=== PATIENT | female | born 1930 | race African-American/Black ===

== ENCOUNTER 2017-02-13 14:10 | Emergency (ER) | payer MEDICARE, OTHER ==
[2017-02-13] MEDS ORDERED: cefTRIAXone\\ROCEPHIN 1 GM VIAL ONE (14:27)
[2017-02-13] MEDS ORDERED: Albuterol Sulfate 2.5 mg/0.5 ml Neb ONE (14:57)
[2017-02-13] MEDS ORDERED: Sodium Chloride For Inhalation 0.9% 3 ML NEB ONE (14:57)
--- NOTE | 2017-02-13 17:18 | RAD ---
PORTABLE CHEST: History: Cough. FINDINGS: Heart size is enlarged. Aorta is tortuous. The lungs are clear of infiltrate. IMPRESSION: Cardiomegaly. POS: [facility]
== END 2017-02-13 15:20 | disposition home or self-care (01) ==
LOC: NAV ERS 14:10
DX: J10.1 Influenza due to other identified influenza virus with other respiratory manifestations (principal); J44.9 Chronic obstructive pulmonary disease, unspecified; I11.0 Hypertensive heart disease with heart failure; I50.9 Heart failure, unspecified; K21.9 Gastro-esophageal reflux disease without esophagitis; F17.210 Nicotine dependence, cigarettes, uncomplicated; Z79.899 Other long term (current) drug therapy
CPT/HCPCS: 71010; 94640; 96372; J0696; J7611

== ENCOUNTER 2017-04-16 17:23 | Emergency (ER) | payer MEDICARE, OTHER | END 2017-04-16 19:22 | disposition home or self-care (01) | LOC: NAV ERS 17:23 | DX: H61.22 Impacted cerumen, left ear (principal); I10 Essential (primary) hypertension; I50.9 Heart failure, unspecified; K21.9 Gastro-esophageal reflux disease without esophagitis; F32.9 Major depressive disorder, single episode, unspecified; Z87.891 Personal history of nicotine dependence; Z79.899 Other long term (current) drug therapy | CPT/HCPCS: 69210 ==

== ENCOUNTER 2018-02-17 14:35 | Emergency (ER) | payer MEDICARE, OTHER ==
[2018-02-17] MEDS ORDERED: Pantoprazole 40 MG VIAL ONE (15:27)
[2018-02-17 15:31] LABS: #Eosinphils 0.1 thou/uL (0.0-0.7); #Lymphocytes 1.5 thou/uL (1.20-3.40); #Monocytes 0.3 thou/uL (0.11-0.59); %Basophils 0.8 % (0.0-1.0); %Lymphocytes 24.9 % (21.0-51.0); %Monocytes 5.3 % (0.0-10.0); %Neutrophils 67.1 % (42.0-75.0); Hemoglobin 11.5 g/dL (12.0-16.0); Mean Corpuscular HGB CONC 33.2 g/dL (32.0-36.0); Mean Corpuscular Hemoglobin 33.9 pg (27.0-31.0); Mean Platelet Volume 6.2 fL (7.4-10.4); Platelet Count 303 thou/uL (130-400); RBC Distribution Width 14.8 % (11.5-14.5); White Blood Cell (WBC) Count 5.9 thou/uL (4.8-10.8)
[2018-02-17 15:49] LABS: ALT (SGPT) 13 U/L (8-55); AST (SGOT) 18 U/L (5-34); Albumin 4.3 g/dL (3.4-4.8); Alkaline Phosphatase 80 U/L (40-150); Anion Gap 17 mmol/L (10-20); BUN (Urea Nitrogen) 27 mg/dL (9.8-20.1); Bilirubin, Total 0.8 mg/dL (0.2-1.2); Calc. Creatinine Clearance 0 mL/min (70-130); Calcium 10.5 mg/dL (7.8-10.44); Carbon Dioxide 25 mmol/L (23-31); Chloride 101 mmol/L (98-107); Estimated GFR-MDRD 32; Globulin 3.2 g/dL (2.4-3.5); Glucose 105 mg/dL (83-110); Lipase 16 U/L (8-78); Protein, Total 7.5 g/dL (6.0-8.3); Sodium 139 mmol/L (136-145)
[2018-02-17 15:55] LABS: CKMB 1.4 ng/mL (0-6.6); Troponin I Less than 0.010 ng/mL (< 0.028)
--- NOTE | 2018-02-17 16:00 | RAD ---
SEMIUPRIGHT PORTABLE CHEST ONE VIEW: 02/17/18 HISTORY: 87-year-old female with history of chest pain. COMPARISON: 02/25/17. FINDINGS: Large body habitus lowers the sensitivity of this study. Poor inspiration is noted. Mild cardiomegaly with atherosclerosis of the aorta. Indistinction of the costophrenic angles raising concerning for s mall pleural effusions. No evidence for a confluent pneumonia. IMPRESSION: Poor inspiratory effort with minimal cardiomegaly and atherosclerotic ectatic changes of the aorta. I ndistinction of the costophrenic angles raising concern for small pleural effusion although this find ing could just be related to large body habitus and poor inspiration. POS: [facility]
--- NOTE | 2018-02-17 16:42 | CT ---
CT ABDOMEN AND PELVIS WITHOUT IV CONTRAST: 02/17/18 INDICATION: History of epigastric abdominal pain. FINDINGS: There is an 8.2 x 7.7 cm mass within the right breast. Lung bases are clear. Unopacified liver, splee n, pancreas and adrenal glands are unremarkable. No renal or ureteral calculus is evident. No hydrone phrosis is evident. There are moderate calcifications involving the abdominal and pelvic vasculature. There is a fat containing midline periumbilical hernia. The bladder, rectum and perirectal soft tissues are unremarkable. There is some scattered diverticula involving the colon without evidence of active diverticulitis. There is a normal appendix in the rig ht lower quadrant. There is scattered degenerative and osteoarthritic change. There is diffuse osteop enia. IMPRESSION: 1. No CT evidence for the patient's abdominal pain. 2. Large right breast mass. Diagnostic mammogram is recommended. Code T POS: [facility]
== END 2018-02-17 17:43 | disposition short-term general hospital (02) ==
LOC: NAV ERS 14:35
DX: R10.13 Epigastric pain (principal); R06.02 Shortness of breath; R79.1 Abnormal coagulation profile; I10 Essential (primary) hypertension; K21.9 Gastro-esophageal reflux disease without esophagitis; F32.9 Major depressive disorder, single episode, unspecified; Z87.891 Personal history of nicotine dependence; Z79.899 Other long term (current) drug therapy
CPT/HCPCS: 71045; 74176; 80053; 82553; 83690; 83880; 84484; 85025; 85379; 93005; 96374; C9113

== ENCOUNTER 2018-03-30 12:23 | Emergency (ER) | payer MEDICARE, OTHER ==
[2018-03-30] MEDS ORDERED: Ketorolac Tromethamine 30 MG/ML VIAL ONE (12:46)
== END 2018-03-30 13:12 | disposition home or self-care (01) ==
LOC: NAV ERS 12:23
DX: M15.9 Polyosteoarthritis, unspecified (principal); I11.0 Hypertensive heart disease with heart failure; I50.9 Heart failure, unspecified; K21.9 Gastro-esophageal reflux disease without esophagitis; E78.5 Hyperlipidemia, unspecified; M41.9 Scoliosis, unspecified; F32.9 Major depressive disorder, single episode, unspecified; Z87.891 Personal history of nicotine dependence; Z79.899 Other long term (current) drug therapy
CPT/HCPCS: 96372; J1885

== ENCOUNTER 2018-03-31 19:47 | Emergency (ER) | payer MEDICARE, OTHER ==
--- NOTE | 2018-03-31 20:46 | CT ---
BRAIN CT WITHOUT IV CONTRAST: 03/31/18 HISTORY: 87-year-old female with left arm pain and numbness. Marked bilateral atrophy and chronic white matter ischemic changes. No mass or bleed or other acute p rocess. Stable from prior study. Sinuses and mastoids are clear of acute process. The sella turcica a ppears to be somewhat enlarged and has low attenuation within raising concern for an empty sella. IMPRESSION: Marked atrophy and chronic white matter ischemic change. No mass or bleed. Somewhat enlarged sella tu rcica with low attenuation raising concern for empty sella. No significant change from 07/25/16. POS: [facility]
== END 2018-03-31 21:16 | disposition home or self-care (01) ==
LOC: NAV ERS 19:47
DX: M19.012 Primary osteoarthritis, left shoulder (principal)
CPT/HCPCS: 36416; 70450; 93005; 94760

== ENCOUNTER 2018-04-07 10:58 | Outpatient (CLI) | payer MEDICARE, OTHER ==
--- NOTE | 2018-04-07 13:01 | CT ---
CT OF CERVICAL SPINE PERFORMED WITHOUT CONTRAST ENHANCEMENT: HISTORY: Neck pain and radiculopathy with pain x 2 weeks. FINDINGS: The vertebral bodies are normal in height. There is severe disk narrowing at C3-4, C4-5, C5-6, and C 6-7. There are moderate degenerative facet changes present. At the C5-6 level, there are asymmetric left-sided uncovertebral hypertrophic changes and moderate left foraminal narrowing. There is also mild left-sided foraminal narrowing at C6-7. I do not appreciate any significant central canal steno sis. The lung apices are clear. IMPRESSION: Marked arthritic change of the spine with left-sided foraminal narrowing as discussed above. POS: [facility]
--- NOTE | 2018-04-07 13:04 | CT ---
CT LEFT SHOULDER PERFORMED WITHOUT CONTRAST ENHANCEMENT: Date: 04/07/18 HISTORY: Left shoulder pain. 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 There are very mild arthritic changes of the AC joint. There is severe osteoarthritic change of the glenohumeral joint space. There is prominent osteophytic change and marked joint space narrowing. There are subchondral cystic changes of the glenoid and hum eral head. No soft tissues masses are visualized. The visualized lung field is clear. IMPRESSION: 1. Severe osteoarthritic change of the glenohumeral joint space. 2. 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 POS: [facility]
== END 2018-04-07 10:59 | disposition home or self-care (01) ==
LOC: NAV CT 10:58
PROVIDERS: ATTEND Internal Medicine
DX: M54.12 Radiculopathy, cervical region (principal); M19.012 Primary osteoarthritis, left shoulder; M46.92 Unspecified inflammatory spondylopathy, cervical region; M99.81 Other biomechanical lesions of cervical region
CPT/HCPCS: 72125

== ENCOUNTER 2018-05-15 22:17 | Emergency (ER) | payer MEDICARE, OTHER ==
--- NOTE | 2018-05-16 00:02 | RAD ---
RADIOGRAPH CHEST 1 VIEW: HISTORY: An 87-year-old female with chest pain radiating to the left arm. FINDINGS: The thoracic aorta is tortuous and ectatic. There is no evidence of air space density, pneumothorax, or pulmonary edema. The lateral costophrenic angles are sharp. IMPRESSION: 1) No acute pulmonary findings. 2) Ectasia of thoracic aorta. jn [] POS: [facility]
--- NOTE | 2018-05-16 00:04 | RAD ---
RADIOGRAPH LEFT HUMERUS TWO VIEWS: DATE: 05/15/2018 TIME: 11:36 p.m. HISTORY: An 87-year-old female with nontraumatic left arm pain. FINDINGS: There are moderate degenerative changes of the humeral head. There is no periosteal elevation, oste olytic lesion, osteoblastic lesion, fracture, or permeative lesion involving the rest of the left hum erus. IMPRESSION: 1. Osteoarthrosis of the left glenohumeral joint. 2. The rest of the humerus is negative. POS: [facility]
== END 2018-05-16 00:41 | disposition home or self-care (01) ==
LOC: NAV ERS 22:17
DX: S46.912A Strain of unspecified muscle, fascia and tendon at shoulder and upper arm level, left arm, initial encounter (principal); K21.9 Gastro-esophageal reflux disease without esophagitis; E78.5 Hyperlipidemia, unspecified; I11.0 Hypertensive heart disease with heart failure; I50.9 Heart failure, unspecified; F32.9 Major depressive disorder, single episode, unspecified; Z87.891 Personal history of nicotine dependence; Z79.899 Other long term (current) drug therapy; X58.XXXA Exposure to other specified factors, initial encounter
CPT/HCPCS: 71045; 93005

== ENCOUNTER 2019-03-12 19:04 | Emergency (ER) | payer MEDICARE, OTHER ==
[2019-03-12 19:35] LABS: #Eosinphils 0.2 thou/uL (0.0-0.7); #Lymphocytes 1.7 thou/uL (1.20-3.40); #Monocytes 0.5 thou/uL (0.11-0.59); #Neutrophils 3.7 thou/uL (1.40-6.50); %Basophils 0.7 % (0.0-1.0); %Monocytes 7.7 % (0.0-10.0); %Neutrophils 60.6 % (42.0-75.0); Hemoglobin 11.6 g/dL (12.0-16.0); Mean Corpuscular HGB CONC 30.6 g/dL (32.0-36.0); Mean Corpuscular Hemoglobin 30.7 pg (27.0-31.0); Mean Platelet Volume 6.5 fL (7.4-10.4); Platelet Count 231 thou/uL (130-400); RBC Distribution Width 15.8 % (11.5-14.5); Red Blood Cell (RBC) Count 3.76 mill/uL (4.20-5.40)
--- NOTE | 2019-03-12 19:43 | RAD ---
EXAM: Chest one view: HISTORY: Left-sided chest pain after eating, reflux COMPARISON: 07/25/2018 FINDINGS: Heart size: Within normal limits. The lungs: Clear of acute process. No evidence for pneumonia, pleural effusion, acute edema, or pneumothorax, or other significant acute process. IMPRESSION: No significant acute intrathoracic disease. Prominent atherosclerosis of the aorta with ectasia. Stable from prior study.
[2019-03-12] MEDS ORDERED: Aspirin Chewable 81 MG TAB ONE (19:46)
[2019-03-12 19:52] LABS: ALT (SGPT) 16 U/L (8-55); AST (SGOT) 23 U/L (5-34); Albumin 4.2 g/dL (3.4-4.8); Alkaline Phosphatase 96 U/L (40-150); Anion Gap 14 mmol/L (10-20); BUN (Urea Nitrogen) 25 mg/dL (9.8-20.1); Bilirubin, Total 0.5 mg/dL (0.2-1.2); Calc. Creatinine Clearance 0 mL/min (70-130); Carbon Dioxide 25 mmol/L (23-31); Chloride 105 mmol/L (98-107); Estimated GFR-MDRD 40; Globulin 2.7 g/dL (2.4-3.5); Glucose 117 mg/dL (83-110); Potassium 3.5 mmol/L (3.5-5.1); Protein, Total 6.9 g/dL (6.0-8.3); Sodium 140 mmol/L (136-145)
[2019-03-12 21:47] LABS: Troponin I 0.011 ng/mL (< 0.028)
== END 2019-03-12 22:05 | disposition home or self-care (01) ==
LOC: NAV ERS 19:04
DX: R07.89 Other chest pain (principal); K21.9 Gastro-esophageal reflux disease without esophagitis; E78.5 Hyperlipidemia, unspecified; I10 Essential (primary) hypertension; Z86.73 Personal history of transient ischemic attack (TIA), and cerebral infarction without residual deficits; F32.9 Major depressive disorder, single episode, unspecified; Z87.891 Personal history of nicotine dependence; Z79.899 Other long term (current) drug therapy
CPT/HCPCS: 36415; 71045; 80053; 84484; 85025; 93005

== ENCOUNTER 2020-02-17 14:30 | Emergency (ER) | payer MEDICARE, OTHER ==
[2020-02-17] MEDS ORDERED: Aspirin Chewable 81 MG TAB ONE (14:55)
[2020-02-17 15:01] LABS: #Eosinphils 0.1 thou/uL (0.0-0.7); #Lymphocytes 1.5 thou/uL (1.20-3.40); #Monocytes 0.4 thou/uL (0.11-0.59); #Neutrophils 3.9 thou/uL (1.40-6.50); %Basophils 0.3 % (0.0-1.0); %Eosinophils 1.9 % (0.0-10.0); %Lymphocytes 25.6 % (21.0-51.0); %Neutrophils 66.3 % (42.0-75.0); Hemoglobin 11.5 g/dL (12.0-16.0); Mean Corpuscular HGB CONC 31.8 g/dL (32.0-36.0); Mean Platelet Volume 7.4 fL (7.4-10.4); Platelet Count 206 thou/uL (130-400); RBC Distribution Width 15.8 % (11.5-14.5); Red Blood Cell (RBC) Count 3.47 mill/uL (4.20-5.40); White Blood Cell (WBC) Count 5.9 thou/uL (4.8-10.8)
--- NOTE | 2020-02-17 15:16 | RAD ---
Exam: Chest one view HISTORY:Chest pain. Comparison: 03/12/2019 FINDINGS: Cardiac silhouette: Normal Aorta: Stable elongation of the aorta Pulmonary vessels: Normal Costophrenic angles: Clear LUNGS: No masses or consolidation. Pneumothorax: None Osseous abnormalities: Chronic changes in both shoulders. IMPRESSION: 1. No acute cardiopulmonary process. 2. Stable elongation of the aorta.
[2020-02-17 15:21] LABS: ALT (SGPT) 14 U/L (8-55); AST (SGOT) 16 U/L (5-34); Albumin 4.2 g/dL (3.4-4.8); Alkaline Phosphatase 109 U/L (40-110); Anion Gap 15 mmol/L (10-20); BUN (Urea Nitrogen) 16 mg/dL (9.8-20.1); Bilirubin, Total 0.6 mg/dL (0.2-1.2); Calc. Creatinine Clearance 0 mL/min (70-130); Calcium 9.5 mg/dL (7.8-10.44); Carbon Dioxide 28 mmol/L (23-31); Chloride 103 mmol/L (98-107); Estimated GFR-MDRD 53; Glucose 126 mg/dL (83-110); Potassium 3.6 mmol/L (3.5-5.1); Protein, Total 7.2 g/dL (6.0-8.3); Sodium 142 mmol/L (136-145)
== END 2020-02-17 15:50 | disposition home or self-care (01) ==
LOC: NAV ERS 14:30
DX: R07.9 Chest pain, unspecified (principal); K21.9 Gastro-esophageal reflux disease without esophagitis; E78.5 Hyperlipidemia, unspecified; E78.00 Pure hypercholesterolemia, unspecified; I10 Essential (primary) hypertension; F32.9 Major depressive disorder, single episode, unspecified; Z87.891 Personal history of nicotine dependence; Z79.899 Other long term (current) drug therapy; Z79.82 Long term (current) use of aspirin
CPT/HCPCS: 36415; 71045; 80053; 83880; 84484; 85025; 93005; 94760

== ENCOUNTER 2020-08-05 16:55 | Emergency (ER) | payer MEDICARE, OTHER ==
[2020-08-06 14:05] LABS: SARS-CoV-2 MS2 Positive; SARS-CoV-2 N Gene Negative; SARS-CoV-2 S Gene Negative; SARS-CoV-2 by NAA Not Detected (NotDetected); SARS-CoV-2 orf1ab Negative
== END 2020-08-05 17:45 | disposition home or self-care (01) ==
LOC: NAV ERS 16:55
DX: Z20.828 Contact with and (suspected) exposure to other viral communicable diseases (principal); I10 Essential (primary) hypertension; K21.9 Gastro-esophageal reflux disease without esophagitis; E78.5 Hyperlipidemia, unspecified; E78.00 Pure hypercholesterolemia, unspecified; F32.9 Major depressive disorder, single episode, unspecified; Z87.891 Personal history of nicotine dependence; Z79.82 Long term (current) use of aspirin; Z79.899 Other long term (current) drug therapy
CPT/HCPCS: 87635; 99283; U0003

== ENCOUNTER 2020-09-23 00:14 | Emergency (ER) | payer MEDICARE, OTHER ==
[2020-09-23 01:33] LABS: Hemoglobin 10.9 g/dL (12.0-16.0); Mean Corpuscular Hemoglobin 32.4 pg (27.0-31.0); Red Blood Cell (RBC) Count 3.37 mill/uL (4.20-5.40); White Blood Cell (WBC) Count 4.6 thou/uL (4.8-10.8)
[2020-09-23 01:34] LABS: #Basophils 0.1 thou/uL (0.0-0.2); #Eosinphils 0.2 thou/uL (0.0-0.7); #Lymphocytes 1.5 thou/uL (1.20-3.40); #Monocytes 0.3 thou/uL (0.11-0.59); #Neutrophils 2.5 thou/uL (1.40-6.50); %Basophils 1.3 % (0.0-1.0); %Eosinophils 4.4 % (0.0-10.0); %Lymphocytes 33.1 % (21.0-51.0); %Neutrophils 54.3 % (42.0-75.0); Manual Diff?? NO; Mean Corpuscular HGB CONC 30.9 g/dL (32.0-36.0); Mean Platelet Volume 6.3 fL (7.4-10.4); Platelet Count 244 thou/uL (130-400); RBC Distribution Width 16.5 % (11.5-14.5)
[2020-09-23 01:47] LABS: ALT (SGPT) 9 U/L (8-55); AST (SGOT) 19 U/L (5-34); Alkaline Phosphatase 108 U/L (40-110); Anion Gap 14 mmol/L (10-20); BUN (Urea Nitrogen) 17 mg/dL (9.8-20.1); Bilirubin, Total 0.5 mg/dL (0.2-1.2); CK (CPK) 86 U/L (29-168); Calc. Creatinine Clearance 0 mL/min (70-130); Calcium 9.1 mg/dL (7.8-10.44); Carbon Dioxide 26 mmol/L (23-31); Chloride 102 mmol/L (98-107); Estimated GFR-MDRD 40; Globulin 2.6 g/dL (2.4-3.5); Glucose 92 mg/dL (83-110); Lipase 11 U/L (8-78); Potassium 4.3 mmol/L (3.5-5.1); Protein, Total 6.6 g/dL (6.0-8.3); Sodium 138 mmol/L (136-145)
--- NOTE | 2020-09-23 07:40 | RAD ---
Exam: Chest one view HISTORY:Chest pain Comparison: 02/17/2020 FINDINGS: Cardiac silhouette:Enlarged. Aorta: Elongated. Pulmonary vessels: Normal Costophrenic angles: Clear LUNGS: No masses or consolidation. Pneumothorax: None Osseous abnormalities: None IMPRESSION: No acute cardiopulmonary process.
== END 2020-09-23 02:30 | disposition home or self-care (01) ==
LOC: NAV ERS 00:14
DX: R07.89 Other chest pain (principal); E78.5 Hyperlipidemia, unspecified; K21.9 Gastro-esophageal reflux disease without esophagitis; E78.00 Pure hypercholesterolemia, unspecified; I10 Essential (primary) hypertension; F32.9 Major depressive disorder, single episode, unspecified; Z87.891 Personal history of nicotine dependence; Z79.899 Other long term (current) drug therapy
CPT/HCPCS: 71045; 80053; 82550; 83690; 84484; 85025; 93005

== ENCOUNTER 2020-10-20 12:13 | Emergency (ER) | payer MEDICARE, OTHER ==
[2020-10-20 13:05] LABS: #Eosinphils 0.1 thou/uL (0.0-0.7); #Lymphocytes 1.1 thou/uL (1.20-3.40); #Monocytes 0.6 thou/uL (0.11-0.59); #Neutrophils 4.5 thou/uL (1.40-6.50); %Basophils 0.5 % (0.0-1.0); %Eosinophils 1.7 % (0.0-10.0); %Lymphocytes 17.7 % (21.0-51.0); %Neutrophils 71.1 % (42.0-75.0); Hemoglobin 11.3 g/dL (12.0-16.0); Mean Corpuscular HGB CONC 30.4 g/dL (32.0-36.0); Mean Corpuscular Hemoglobin 32.4 pg (27.0-31.0); Mean Platelet Volume 6.3 fL (7.4-10.4); Platelet Count 211 thou/uL (130-400); RBC Distribution Width 16.5 % (11.5-14.5); Red Blood Cell (RBC) Count 3.48 mill/uL (4.20-5.40); White Blood Cell (WBC) Count 6.4 thou/uL (4.8-10.8)
[2020-10-20 13:08] LABS: ALT (SGPT) 10 U/L (8-55); AST (SGOT) 19 U/L (5-34); Alkaline Phosphatase 89 U/L (40-110); Anion Gap 18 mmol/L (10-20); BUN (Urea Nitrogen) 18 mg/dL (9.8-20.1); Bilirubin, Total 0.6 mg/dL (0.2-1.2); Calc. Creatinine Clearance 0 mL/min (70-130); Calcium 9.6 mg/dL (7.8-10.44); Carbon Dioxide 24 mmol/L (23-31); Chloride 103 mmol/L (98-107); Estimated GFR-MDRD 44; Glucose 108 mg/dL (83-110); Potassium 3.9 mmol/L (3.5-5.1); Sodium 141 mmol/L (136-145)
--- NOTE | 2020-10-20 13:27 | RAD ---
XR Chest 1 View Portable HISTORY: Dyspnea COMPARISON: 09/23/2020 FINDINGS: The heart size remains enlarged. The aorta is tortuous. The lungs are without focal areas o f consolidation, pneumothorax or pleural effusions. IMPRESSION: No radiographic evidence of acute cardiopulmonary process.
[2020-10-21 07:28] LABS: SARS-CoV-2 MS2 Positive; SARS-CoV-2 N Gene Negative; SARS-CoV-2 S Gene Negative; SARS-CoV-2 by NAA Not Detected (NotDetected); SARS-CoV-2 orf1ab Negative
== END 2020-10-20 13:55 | disposition home or self-care (01) ==
LOC: NAV ERS 12:13
DX: R06.02 Shortness of breath (principal); Z20.828 Contact with and (suspected) exposure to other viral communicable diseases; K21.9 Gastro-esophageal reflux disease without esophagitis; E78.5 Hyperlipidemia, unspecified; E78.00 Pure hypercholesterolemia, unspecified; I10 Essential (primary) hypertension; Z87.891 Personal history of nicotine dependence; Z79.82 Long term (current) use of aspirin; Z79.899 Other long term (current) drug therapy
CPT/HCPCS: 71045; 80053; 83880; 84484; 85025; 93005; 94760; 99285; U0003; 87635

== ENCOUNTER 2020-11-30 17:46 | Emergency (ER) | payer MEDICARE, OTHER ==
--- NOTE | 2020-11-30 18:29 | RAD ---
EXAM: CHEST ONE VIEW HISTORY: Dyspnea. COMPARISON: 10/20/2020 FINDINGS: The cardiac silhouette and pulmonary vasculature are within normal limits. The lungs are clear. The t horacic aorta is ectatic and tortuous with similar appearance compared to prior study. Severe left glenohumeral osteoarthropathy is present. There is osteopenia. IMPRESSION: No acute cardiopulmonary process.
[2020-11-30 18:37] LABS: #Eosinphils 0.1 thou/uL (0.0-0.7); #Lymphocytes 1.5 thou/uL (1.20-3.40); #Monocytes 0.3 thou/uL (0.11-0.59); #Neutrophils 2.4 thou/uL (1.40-6.50); %Basophils 1.1 % (0.0-1.0); %Eosinophils 2.8 % (0.0-10.0); %Lymphocytes 34.9 % (21.0-51.0); %Monocytes 6.1 % (0.0-10.0); Hemoglobin 12.7 g/dL (12.0-16.0); Mean Corpuscular HGB CONC 31.8 g/dL (32.0-36.0); Mean Corpuscular Hemoglobin 33.3 pg (27.0-31.0); Mean Platelet Volume 5.9 fL (7.4-10.4); Platelet Count 226 thou/uL (130-400); RBC Distribution Width 16.8 % (11.5-14.5); Red Blood Cell (RBC) Count 3.82 mill/uL (4.20-5.40); White Blood Cell (WBC) Count 4.3 thou/uL (4.8-10.8)
[2020-11-30 18:42] LABS: ALT (SGPT) 9 U/L (8-55); AST (SGOT) 21 U/L (5-34); Albumin 4.3 g/dL (3.4-4.8); Alkaline Phosphatase 98 U/L (40-110); Anion Gap 19 mmol/L (10-20); BUN (Urea Nitrogen) 15 mg/dL (9.8-20.1); Bilirubin, Total 0.8 mg/dL (0.2-1.2); CK (CPK) 44 U/L (29-168); Calc. Creatinine Clearance 0 mL/min (70-130); Calcium 9.9 mg/dL (7.8-10.44); Carbon Dioxide 23 mmol/L (23-31); Chloride 101 mmol/L (98-107); Globulin 3.4 g/dL (2.4-3.5); Glucose 89 mg/dL (83-110); Potassium 4.4 mmol/L (3.5-5.1); Protein, Total 7.7 g/dL (6.0-8.3); Sodium 139 mmol/L (136-145)
[2020-11-30 19:04] LABS: CKMB 0.8 ng/mL (0-6.6)
== END 2020-11-30 19:30 | disposition home or self-care (01) ==
LOC: NAV ERS 17:46
DX: R06.00 Dyspnea, unspecified (principal); K21.9 Gastro-esophageal reflux disease without esophagitis; E78.5 Hyperlipidemia, unspecified; E78.00 Pure hypercholesterolemia, unspecified; I10 Essential (primary) hypertension; Z87.891 Personal history of nicotine dependence; Z79.82 Long term (current) use of aspirin; Z79.899 Other long term (current) drug therapy
CPT/HCPCS: 71045; 80053; 82550; 82553; 83880; 84484; 85025; 93005

== ENCOUNTER 2021-04-05 13:50 | Emergency (ER) | payer MEDICARE, OTHER | END 2021-04-05 15:00 | disposition home or self-care (01) | LOC: NAV ERS 13:50 | DX: S00.83XA Contusion of other part of head, initial encounter (principal); K21.9 Gastro-esophageal reflux disease without esophagitis; E78.5 Hyperlipidemia, unspecified; I10 Essential (primary) hypertension; Z87.891 Personal history of nicotine dependence; Z79.82 Long term (current) use of aspirin; W19.XXXA Unspecified fall, initial encounter | CPT/HCPCS: 70450 ==

== ENCOUNTER 2021-05-18 01:22 | Emergency (ER) | payer MEDICARE, OTHER ==
[2021-05-18 02:37] LABS: ALT (SGPT) 7 U/L (8-55); AST (SGOT) 16 U/L (5-34); Albumin 3.8 g/dL (3.4-4.8); Alkaline Phosphatase 79 U/L (40-110); Anion Gap 15 mmol/L (10-20); BUN (Urea Nitrogen) 9 mg/dL (9.8-20.1); Bilirubin, Total 0.6 mg/dL (0.2-1.2); Calc. Creatinine Clearance 0 mL/min (70-130); Calcium 9.2 mg/dL (7.8-10.44); Carbon Dioxide 23 mmol/L (23-31); Chloride 102 mmol/L (98-107); Globulin 2.8 g/dL (2.4-3.5); Glucose 128 mg/dL (83-110); Magnesium 1.1 mg/dL (1.6-2.6); Potassium 4.1 mmol/L (3.5-5.1); Protein, Total 6.6 g/dL (5.8-8.1); Sodium 136 mmol/L (136-145)
[2021-05-18] MEDS ORDERED: Magnesium 2 GM/50 ML BAG (IN WATER) ONE (03:02)
[2021-05-18 04:13] LABS: #Monocytes 0.5 10x3/uL (0.0-1.1); %Basophils 0.2 % (0.0-2.0); %Eosinophils 0.2 % (0.0-6.0); %Lymphocytes 20.5 % (18.0-47.0); %Monocytes 12.1 % (0.0-10.0); %Neutrophils 66.3 % (40.0-75.0); Mean Corpuscular HGB CONC 31.6 g/dL (32.0-36.0); Mean Corpuscular Hemoglobin 34.5 pg (27.0-33.0); Mean Corpuscular Volume 109.1 fl (81.6-98.3); Mean Platelet Volume 10.2 fl (7.4-10.4); Platelet Count 259 10x3/uL (150-450); RBC Distribution Width 14.4 % (11.5-14.5); Red Blood Cell (RBC) Count 3.19 10x6/uL (3.90-5.03); White Blood Cell (WBC) Count 4.5 10x3/uL (3.5-10.5)
[2021-05-18 05:28] LABS: Anisocytosis SLIGHT = 6-15 cells (100X) (0-5/hpf); Macrocytosis MODERATE=16-30 cells (100X) (0-5/hpf); Platelet Morphology Comment Appears Adequate
[2021-05-18 07:21] LABS: #Lymphocytes 0.9 10x3/uL (0.7-4.9)
== END 2021-05-18 04:45 | disposition home or self-care (01) ==
LOC: NAV ERS 01:22
DX: E83.42 Hypomagnesemia (principal); R06.02 Shortness of breath; K21.9 Gastro-esophageal reflux disease without esophagitis; E78.5 Hyperlipidemia, unspecified; I10 Essential (primary) hypertension; Z87.891 Personal history of nicotine dependence; Z79.82 Long term (current) use of aspirin; Z79.899 Other long term (current) drug therapy
CPT/HCPCS: 71045; 80053; 83735; 83880; 84484; 85025; 93005; 94760; 96365; J3475

== ENCOUNTER 2021-07-04 14:57 | Emergency (ER) | payer MEDICARE, OTHER ==
[2021-07-04 16:16] LABS: #Lymphocytes 0.9 thou/uL (1.20-3.40); #Monocytes 0.3 thou/uL (0.11-0.59); #Neutrophils 3.6 thou/uL (1.40-6.50); %Basophils 0.2 % (0.0-1.0); %Eosinophils 0.2 % (0.0-10.0); %Lymphocytes 18.6 % (21.0-51.0); %Monocytes 5.3 % (0.0-10.0); %Neutrophils 75.7 % (42.0-75.0); Hemoglobin 10.9 g/dL (12.0-16.0); Mean Corpuscular HGB CONC 29.3 g/dL (32.0-36.0); Mean Corpuscular Hemoglobin 33.9 pg (27.0-31.0); Mean Platelet Volume 7.1 fL (7.4-10.4); Platelet Count 194 thou/uL (130-400); RBC Distribution Width 15.4 % (11.5-14.5); Red Blood Cell (RBC) Count 3.21 mill/uL (4.20-5.40); White Blood Cell (WBC) Count 4.8 thou/uL (4.8-10.8)
[2021-07-04 16:28] LABS: ALT (SGPT) 9 U/L (8-55); AST (SGOT) 27 U/L (5-34); Albumin 3.5 g/dL (3.4-4.8); Alkaline Phosphatase 93 U/L (40-110); Anion Gap 15 mmol/L (10-20); BUN (Urea Nitrogen) 11 mg/dL (9.8-20.1); Bilirubin, Total 0.5 mg/dL (0.2-1.2); Calc. Creatinine Clearance 0 mL/min (70-130); Calcium 8.5 mg/dL (7.8-10.44); Carbon Dioxide 23 mmol/L (23-31); Chloride 102 mmol/L (98-107); Globulin 2.7 g/dL (2.4-3.5); Glucose 104 mg/dL (83-110); Potassium 4.2 mmol/L (3.5-5.1); Protein, Total 6.2 g/dL (5.8-8.1); Sodium 136 mmol/L (136-145)
[2021-07-04] MEDS ORDERED: methylPREDNISolone Sod Succ/PF 125 MG/2 ML VIAL ONE (17:14)
[2021-07-04] MEDS ORDERED: Sodium Chloride 0.9% 1,000 ML ONE (17:14)
[2021-07-04] MEDS ORDERED: Enoxaparin Sodium 80 MG/0.8 ML SYRINGE ONE (17:14)
[2021-07-04] MEDS ORDERED: Enoxaparin Sodium 30 MG/0.3 ML SYRINGE ONE (17:15)
[2021-07-04] MEDS ORDERED: Enoxaparin Sodium 60 MG/0.6 ML SYRINGE ONE (17:15)
[2021-07-04 18:19] LABS: SARS-CoV-2 NAA Rapid Test DETECTED (NotDetected)
[2021-07-04] MEDS ORDERED: Dexamethasone 4 mg/ml Vial ONE (20:50)
[2021-07-05 03:20] LABS: Anion Gap 14 mmol/L (10-20); BUN (Urea Nitrogen) 11 mg/dL (9.8-20.1); Calc. Creatinine Clearance 0 mL/min (70-130); Calcium 8.7 mg/dL (7.8-10.44); Carbon Dioxide 25 mmol/L (23-31); Chloride 102 mmol/L (98-107); Glucose 161 mg/dL (83-110); Potassium 4.4 mmol/L (3.5-5.1); Sodium 137 mmol/L (136-145)
[2021-07-05] MEDS ORDERED: Acetaminophen 500 MG TAB ONE (04:56)
== END 2021-07-05 06:07 | disposition short-term general hospital (02) ==
LOC: NAV ERS 14:57
DX: J40 Bronchitis, not specified as acute or chronic (principal); R79.1 Abnormal coagulation profile; N28.9 Disorder of kidney and ureter, unspecified; K21.9 Gastro-esophageal reflux disease without esophagitis; E78.5 Hyperlipidemia, unspecified; E78.00 Pure hypercholesterolemia, unspecified; I10 Essential (primary) hypertension; I51.7 Cardiomegaly; Z20.822 Contact with and (suspected) exposure to COVID-19; Z87.891 Personal history of nicotine dependence; Z79.82 Long term (current) use of aspirin; Z79.899 Other long term (current) drug therapy
CPT/HCPCS: 0240U; 71045; 80048; 80053; 83605; 83880; 84484; 85025; 85379; 93005; 36415; 96372; 96374; 96375; J1100; J1650; J2930; J7050